=== PATIENT | male | born 1945 | race Caucasian/White ===

== ENCOUNTER → 2016-08-16 | Outpatient (CLI) | payer OTHER ==
--- NOTE | 2016-08-16 11:02 | DX ---
Cervical Spine, Six Views History: Recent fall 10 days ago with persistent stiffness. Comparison: None available. Findings: There is lucency at the anterior inferior aspect of the C4 vertebral body, which could be r elated to a nondisplaced fracture or artifact from overlying calcification. Vertebral body heights ar e preserved. Mild vertebral and moderate uncovertebral spondylosis is present in the cervical spine, most prominent at C3-C4 and C5-C6. Moderate facet hypertrophy is present at multiple levels, includin g bilaterally at C3-C4. There is moderate bilateral neural foraminal stenosis at C3-C4. There is asym metric positioning of the lateral masses of C1 on C2, with limited visualization of C1 due to osseous overlap. Impression: 1. Possible nondisplaced fracture at the anterior inferior endplate of C4. CT cervical spine is recom mended for further evaluation. 2. Asymmetric positioning of the lateral masses of C1 on C2, which could be positional or related to trauma. 3. Degenerative change with moderate bilateral neural foraminal stenosis at C3-C4. Findings discussed with Chun Powell today at 1055 hours.
--- NOTE | 2016-08-16 15:28 | CT ---
CT Cervical Spine August 16, 2016 Indication: Trauma. Neck pain. Possible chip fracture anteroinferior endplate of C4. Questionable malalignment at C1-C2. Technique: 1.25-mm thick axial collimated slices were obtained from the occiput through superior end plate of T2. The data was reconstructed in the sagittal and coronal plane. Both soft tissue and bon e windows were reviewed. Dose reduction techniques were utilized. Comparison: Cervical spine series dated August 16, 2016. Findings: A nondisplaced tiny 1- x 2-mm chip fracture is present along the anteroinferior endplate o f C4. The C4 vertebral body and posterior elements are otherwise normal. No malalignment or disrupt ion of the facets. The prevertebral soft tissues are normal. Nondisplaced unilateral fracture courses through the right inferior C7 facet near the articulation wi th the lamina on images #102 through 107 of the axial imaging and images #48 and 49 of the sagittal r econstruction. The right C7-T1 facet joint is well aligned. No other fractures at the C7-T1 level. The cervical spine is anatomically aligned, with multilevel mild degenerative disease extending from C4-C5 to T1-T2. The C1-C2 articulation is normal. Benign synovial hypertrophy is present at the level of the dens. Impression: 1. Acute nondisplaced chip fracture anteroinferior endplate of C4. 2. Nondisplaced right unilateral C7 facet fracture. 3. Mild multilevel degenerative disk and facet arthropathy. Comment: The case was discussed with Dr. Ayon shortly after study completion at 1400 hours on Aug.
== END ==
LOC: FIMAGING 09:33
PROVIDERS: ATTEND Emergency Medicine
DX: S12.301A Unspecified nondisplaced fracture of fourth cervical vertebra, initial encounter for closed fracture (principal); S12.601A Unspecified nondisplaced fracture of seventh cervical vertebra, initial encounter for closed fracture

== ENCOUNTER → 2016-09-14 | Outpatient (CLI) | payer OTHER ==
--- NOTE | 2016-09-14 18:16 | DX ---
Cervical Spine Complete, 5 Views Including Flexion and Extension History: Follow-up injury to C4 and C7 Comparison: August 16, [address] Findings: . The anterior inferior corner fracture of C4 is in stable alignment without evidence of mo tion between lateral flexion and extension. The fracture line is still visible. It is nearly impossible to visualize the faint left C7 inferior facet fracture. A minimal spondylolis thesis at C6-C7 is stable and does not demonstrate instability on lateral flexion and extension views . There is no prevertebral soft tissue swelling. The remainder of the cervical spine remains normal. Th ere is a stable nuchal ligament ossification posterior to the spinous process of C4. Impression: Stable cervical alignment without instability.
== END ==
LOC: FIMAGING 11:15
PROVIDERS: ATTEND Neurological Surgery
DX: M48.52XA Collapsed vertebra, not elsewhere classified, cervical region, initial encounter for fracture (principal)

== ENCOUNTER → 2018-08-13 | Outpatient (CLI) | payer OTHER | LOC: FIMAGING 15:14 | PROVIDERS: ATTEND Family Medicine | DX: M19.012 Primary osteoarthritis, left shoulder (principal) ==